=== PATIENT | male | born 1930 | race Caucasian/White ===

== ENCOUNTER → 2020-01-14 | Outpatient (CLI) | payer MEDICARE | END | disposition home or self-care (01) | LOC: PLD 10:48 → LAB SHORT 10:48 | DX: D04.39 Carcinoma in situ of skin of other parts of face (principal); D04.5 Carcinoma in situ of skin of trunk; L57.0 Actinic keratosis | CPT/HCPCS: 88305 ==

== ENCOUNTER → 2020-07-14 | Outpatient (CLI) | payer MEDICARE | END | disposition home or self-care (01) | LOC: LAB SHORT 08:15 → LAB 08:15 | DX: C44.42 Squamous cell carcinoma of skin of scalp and neck (principal) | CPT/HCPCS: 88305 ==

== ENCOUNTER → 2020-08-09 | Outpatient (CLI) | payer MEDICARE | END | disposition home or self-care (01) | LOC: LAB 12:33 → LAB SHORT 12:33 | DX: C44.329 Squamous cell carcinoma of skin of other parts of face (principal) | CPT/HCPCS: 88305 ==